=== PATIENT | female | born 1995 | race Caucasian/White ===

== ENCOUNTER 2025-06-17 09:07 | Emergency (ER) | payer SELFPAY ==
[2025-06-17] MEDS ORDERED: Naloxone 0.4 MG/ML SDV IVPUSH PRN (09:45)
[2025-06-17 10:07] LABS: BASOPHILS ABSOLUTE AUTO 0.1 K/mm3 (0.0-0.2); BASOPHILS PERCENT AUTO 0.3 % (0.0-1.0); EOSINOPHILS ABSOLUTE AUTO 0.0 K/mm3 (0.0-0.4); EOSINOPHILS PERCENT AUTO 0.0 % (0.0-6.0); IMMATURE GRAN ABSOLUTE AUTO 0.09 K/mm3 (0.00-0.05); IMMATURE GRAN PERCENT AUTO 0.5 % (0.0-0.4); LYMPHOCYTES ABSOLUTE AUTO 1.2 K/mm3 (1.0-4.8); LYMPHOCYTES PERCENT AUTO 6.2 % (24.0-44.0); MEAN PLATELET VOLUME 10.4 fl (9.4-12.3); MONOCYTES ABSOLUTE AUTO 0.6 K/mm3 (0.0-0.8); MONOCYTES PERCENT AUTO 3.0 % (0.0-8.0); NEUTROPHILS ABSOLUTE AUTO 16.6 K/mm3 (1.8-7.7); NEUTROPHILS PERCENT AUTO 90.0 % (41.0-71.0); NRBC ABSOLUTE 0.00 (0.00-0.02); NRBC PERCENT 0.0 % (0.0-0.2); PLATELET COUNT,PLT 356 K/mm3 (150-400); RED BLOOD CELL COUNT 5.03 M/mm3 (4.10-5.30); WHITE BLOOD CELL COUNT,WBC 18.46 K/mm3 (3.9-11.3)
[2025-06-17] MEDS: Ondansetron 4 MG/2 ML SDV IVPUSH ONE (10:10)
[2025-06-17] MEDS: fentaNYL 100 MCG/2 ML SDV IVPUSH STA (10:12)
[2025-06-17 10:27] LABS: A/G RATIO 1.2 (1-2); ALANINE AMINOTRANSFERASE,ALT 18 U/L (14-59); ASPARTATE AMNIOTRANSFERASE,AST 18 U/L (15-37); BILIRUBIN TOTAL 0.5 mg/dL (0.2-1.0); BLOOD UREA NITROGEN,BUN 10 mg/dL (7-18); CARBON DIOXIDE,CO2 19 mEq/L (21-32); CHLORIDE,CL 106 mEq/L (98-107); CREATINE KINASE,CK 197 U/L (26-192); CREATININE 1.1 mg/dL (0.55-1.02); ESTIMATED GFR 71 mL/min (>60); GLUCOSE RANDOM 122 mg/dL (70-99); POTASSIUM,K 4.0 mEq/L (3.5-5.1); PROTEIN TOTAL,TP 8.3 g/dl (6.4-8.2); SODIUM,NA 140 mEq/L (136-145)
[2025-06-17 10:28] LABS: TROPONIN I HIGH SENSITIVITY < 4 pg/mL (<=51)
[2025-06-17] MEDS: Sodium Chloride 0.9% 10 ML Syringe FLUSH PRN (12:54)
[2025-06-17] MEDS: Iopamidol 755 Mg/ML 100 ML Bottle IVPUSH ONE (12:55)
[2025-06-17] MEDS: LORazepam 2 MG/ML SDV IVPUSH STA (13:59)
== END 2025-06-17 15:11 | disposition home or self-care (01) ==
LOC: JD.ED 09:07
DX: K29.01 Acute gastritis with bleeding (principal); F17.200 Nicotine dependence, unspecified, uncomplicated; Z79.899 Other long term (current) drug therapy
CPT/HCPCS: 36415; 71260; 74177; 80053; 82550; 83690; 83735; 84484; 84703; 85025; 86850; 86900; 86901; 93005; 96361; 96374; 96375; 99285; A9270; J1308; J2060; J2405; J2470; J3010; J7030; Q9967; 93010; 99284

== ENCOUNTER → 2025-07-21 | Day surgery (SDC) | payer MEDICAID ==
[~2025-07-21] MED LIST: Ondansetron 4 MG/2 ML SDV ONE; Propofol 200 MG/20 ML SDV ONE; Sodium Chloride 0.9% 10 ML Syringe FLUSH PRN; Sodium Chloride 0.9% 10 ML Syringe FLUSH SCH
[2025-07-21] MEDS: Lactated Ringers 1,000 ML IV SCH (08:55)
[2025-07-21] MEDS: Ondansetron 4 MG/2 ML SDV IVPUSH ONE (09:18)
[2025-07-21 11:03] LABS: BASOPHILS ABSOLUTE AUTO 0.1 K/mm3 (0.0-0.2); BASOPHILS PERCENT AUTO 0.3 % (0.0-1.0); EOSINOPHILS ABSOLUTE AUTO 0.0 K/mm3 (0.0-0.4); EOSINOPHILS PERCENT AUTO 0.1 % (0.0-6.0); IMMATURE GRAN ABSOLUTE AUTO 0.06 K/mm3 (0.00-0.05); IMMATURE GRAN PERCENT AUTO 0.3 % (0.0-0.4); LYMPHOCYTES ABSOLUTE AUTO 1.1 K/mm3 (1.0-4.8); LYMPHOCYTES PERCENT AUTO 6.1 % (24.0-44.0); MEAN PLATELET VOLUME 10.8 fl (9.4-12.3); MONOCYTES ABSOLUTE AUTO 0.5 K/mm3 (0.0-0.8); MONOCYTES PERCENT AUTO 3.1 % (0.0-8.0); NEUTROPHILS ABSOLUTE AUTO 15.6 K/mm3 (1.8-7.7); NEUTROPHILS PERCENT AUTO 90.1 % (41.0-71.0); NRBC ABSOLUTE 0.00 (0.00-0.02); NRBC PERCENT 0.0 % (0.0-0.2); RED BLOOD CELL COUNT 4.82 M/mm3 (4.10-5.30); WHITE BLOOD CELL COUNT,WBC 17.30 K/mm3 (3.9-11.3)
[2025-07-21 11:05] LABS: PLATELET COUNT,PLT 245 K/mm3 (150-400)
[2025-07-21] MEDS: droPERidol 2.5 MG/ML SDV IV ONE (11:05)
[2025-07-21 11:15] LABS: A/G RATIO 1.2 (1-2); ALANINE AMINOTRANSFERASE,ALT 26.0 U/L (14-59); ASPARTATE AMNIOTRANSFERASE,AST 13.0 U/L (15-37); BILIRUBIN DIRECT 0.1 mg/dl (0.0-0.2); BILIRUBIN TOTAL 0.4 mg/dL (0.2-1.0); BLOOD UREA NITROGEN,BUN 11.0 mg/dL (7-18); CARBON DIOXIDE,CO2 26.0 mEq/L (21-32); CHLORIDE,CL 109.0 mEq/L (98-107); CREATININE 0.9 mg/dL (0.55-1.02); EST CRCL DRUG DOSING (CG) 98.12 mL/min; ESTIMATED GFR 90.0 mL/min (>60); GLUCOSE RANDOM 98.0 mg/dL (70-99); POTASSIUM,K 4.2 mEq/L (3.5-5.1); PROTEIN TOTAL,TP 7.5 g/dl (6.4-8.2); SODIUM,NA 145.0 mEq/L (136-145)
== END | disposition home or self-care (01) ==
LOC: JD.SDS 08:30
PROVIDERS: ATTEND Surgery
DX: K21.9 Gastro-esophageal reflux disease without esophagitis (principal); K44.9 Diaphragmatic hernia without obstruction or gangrene; R07.9 Chest pain, unspecified; F17.290 Nicotine dependence, other tobacco product, uncomplicated; Z79.899 Other long term (current) drug therapy
CPT/HCPCS: 36415; 43239; 80053; 81025; 82248; 83690; 85025; C9777; J1790; J2405; J2704; J7120; 00731